=== PATIENT | female | born 1975 | race Caucasian/White ===

== ENCOUNTER → 2020-03-06 11:17 | Outpatient (CLI) | payer OTHER, SELFPAY ==
--- NOTE | ~2020-03-06 | MM_ITS ---
EXAMINATION: MM screening krystal BI w cherie HISTORY: Screening mammogram TECHNIQUE: Craniocaudal and mediolateral oblique 3-D tomosynthesis images were obtained and synthetic 2-D images were generated. CAD analysis was submitted and interpreted. COMPARISON: 02/27/2019 bilateral digital screening mammogram 03/15/2019 limited left breast ultrasound BREAST PARENCHYMAL COMPOSITION: The breasts are heterogeneously dense, which may obscure small masses . FINDINGS: There is no evidence of suspicious mass, calcification, or architectural distortion to sugg est malignancy in either breast. There has been no suspicious interval change. IMPRESSION: 1. No mammographic evidence of malignancy. 2. Recommend routine screening mammography in one year. BI-RADS Category 1: Negative Reviewed, dictated and finalized at location A.
== END ==
PROVIDERS: PCP Family Medicine; Visit Provider Family Medicine
DX: Z12.31 Encounter for screening mammogram for malignant neoplasm of breast (principal)
CPT/HCPCS: 77063; 77067

== ENCOUNTER → 2021-03-09 11:03 | Outpatient (CLI) | payer OTHER, SELFPAY ==
--- NOTE | ~2021-03-09 | MM_ITS ---
EXAMINATION: MM screening krystal BI w cherie HISTORY: Screening mammogram TECHNIQUE: Craniocaudal and mediolateral oblique 3-D tomosynthesis images were obtained and synthetic 2-D images were generated. CAD analysis was submitted and interpreted. COMPARISON: 03/06/2020 bilateral digital screening mammogram 03/15/2019 limited left breast ultrasound 02/27/2019 bilateral digital screening mammogram BREAST PARENCHYMAL COMPOSITION: The breasts are heterogeneously dense, which may obscure small masses . FINDINGS: There is no evidence of suspicious mass, calcification, or architectural distortion to sugg est malignancy in either breast. There has been no suspicious interval change. IMPRESSION: 1. No mammographic evidence of malignancy. 2. Recommend routine screening mammography in one year. BI-RADS Category 1: Negative Reviewed, dictated and finalized at location A.
== END ==
PROVIDERS: PCP Family Medicine; Visit Provider Family Medicine
DX: Z12.31 Encounter for screening mammogram for malignant neoplasm of breast (principal)
CPT/HCPCS: 77063; 77067

== ENCOUNTER 2022-02-07 14:45 | Outpatient (RCR) | payer OTHER, SELFPAY ==
[2022-02-07] MEDS: ACETAMINOPHEN 325 MG TABLET 650 MG PO (15:12)
[2022-02-07] MEDS: diphenhydrAMINE HCl CAP 25 MG CAPSULE PO (15:12)
[2022-02-07] MEDS: FAMOTIDINE 20 MG TABLET PO (15:12)
[2022-02-07 15:18] VITALS: BP 116/71; PULSE 86; RESP 20; TEMP 36.6; O2SAT 97
[2022-02-07] MEDS: BEBTELOVIMAB 175 MG/2 ML VIAL IV PUSH (15:32)
[2022-02-07 16:09] VITALS: BP 112/76; PULSE 84; O2SAT 98
== END 2022-02-07 16:00 ==
LOC: AMCINF 14:45
PROVIDERS: Referring Provider Family Medicine; Visit Provider Internal Medicine Hematology & Oncology
DX: U07.1 COVID-19 (principal); I10 Essential (primary) hypertension
CPT/HCPCS: A9270; M0222; Q0222

== ENCOUNTER → 2022-03-14 11:27 | Outpatient (CLI) | payer OTHER, SELFPAY ==
--- NOTE | ~2022-03-14 | MM_ITS ---
EXAMINATION: MM screening krystal BI w cherie HISTORY: Screening TECHNIQUE: Craniocaudal and mediolateral oblique 3-D tomosynthesis images were obtained and synthetic 2-D images were generated. CAD analysis was submitted and interpreted. COMPARISON: Comparison to multiple prior studies sequentially, with oldest reviewed study dated 03/03. BREAST PARENCHYMAL COMPOSITION: The breasts are heterogeneously dense, which may obscure small masses . FINDINGS: There is no evidence of suspicious mass, calcification, or architectural distortion to sugg est malignancy in either breast. There has been no suspicious interval change. IMPRESSION: 1. No mammographic evidence of malignancy. 2. Recommend routine screening mammography in one year. BI-RADS Category 1: Negative Reviewed, dictated and finalized at location A.
== END ==
PROVIDERS: PCP Family Medicine; Visit Provider Family Medicine
DX: Z12.31 Encounter for screening mammogram for malignant neoplasm of breast (principal)
CPT/HCPCS: 77063; 77067

== ENCOUNTER 2022-04-04 13:43 | Outpatient (CLI) | payer OTHER, SELFPAY ==
[2022-04-07 16:05] LABS: Prolactin 7.9 ng/mL (***)
== END 2022-04-04 13:44 | disposition home or self-care (01) ==
LOC: ANHGOSHLAB 13:47
PROVIDERS: PCP Family Medicine; Visit Provider Family Medicine
DX: E22.1 Hyperprolactinemia (principal)
CPT/HCPCS: 36415; 84146

== ENCOUNTER → 2023-07-10 15:24 | Outpatient (CLI) | payer OTHER, SELFPAY ==
--- NOTE | ~2023-07-10 | MM_ITS ---
EXAMINATION: MM screening krystal BI w cherie HISTORY: Screening mammogram TECHNIQUE: Craniocaudal and mediolateral oblique 3-D tomosynthesis images were obtained and synthetic 2-D images were generated. Bilateral rotated lateral CC views. CAD analysis was submitted and interp reted. COMPARISON: 03/2022, 03/09/2021, 03/06/2020 bilateral screening mammogram examinations BREAST PARENCHYMAL COMPOSITION: The breasts are heterogeneously dense, which may obscure small masses . FINDINGS: There is an approximately 1.6 x 1.9 cm oval low-density circumscribed opacity with halo sig n situated anteriorly in the mid to lower outer left breast. This has benign mammographic features, l ikely a benign cyst. This is only slightly increased in size compared to 03/2022. There is no evidence of suspicious mass, calcification, or architectural distortion to suggest malign fer in either breast. There has been no suspicious interval change. IMPRESSION: 1. Benign left breast probable cyst No mammographic evidence of malignancy. 2. Recommend routine screening mammography in one year. BI-RADS Category 2: Benign finding(s). Reviewed, dictated and finalized at location A. 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
== END ==
PROVIDERS: PCP Family Medicine; Visit Provider Family Medicine
DX: Z12.31 Encounter for screening mammogram for malignant neoplasm of breast (principal)
CPT/HCPCS: 77063; 77067

== ENCOUNTER 2023-12-23 09:16 | Outpatient (CLI) | payer OTHER, SELFPAY ==
--- NOTE | ~2023-12-23 | US_ITS ---
EXAMINATION: US arterial ankle brachial ind DATE: 12/23/2023 10:24 INDICATION: Raynaud's syndrome without gangrene TECHNIQUE: Segmental pressures and plethysmographic and Doppler waveforms of the brachial and lower e xtremity arteries were obtained. COMPARISON: None. FINDINGS: Right and left brachial artery pressures of 107 mm Hg and 102 mm Hg, respectively, are concordant (no rmal difference <= 30 mmHg). The right ankle-brachial index (WILLIAMS) is 1.21 (normal >= 0.9-1.0). The right great toe-brachial index (TBI) is 0.84 (normal >= 0.65). Arterial Doppler waveforms are triphasic at the right posterior tibia l and biphasic at the right dorsalis pedis arteries, both with brisk systolic upstrokes. The left WILLIAMS is 1.26. The left TBI is 0.73. Arterial Doppler waveforms are biphasic with brisk systol ic upstrokes at both left posterior tibial and dorsalis pedis arteries. IMPRESSION: 1. No significant arterial occlusive disease with normal bilateral ABIs and TBI's. Reviewed, dictated and finalized at location B. IMPRESSION: 1. No significant arterial occlusive disease with normal bilateral ABIs and TBI 's.
== END 2023-12-23 09:17 | disposition home or self-care (01) ==
LOC: ANHIMG 09:19
PROVIDERS: PCP Family Medicine; Visit Provider Family Medicine
DX: I73.00 Raynaud's syndrome without gangrene (principal)
CPT/HCPCS: 93922

== ENCOUNTER 2024-06-28 07:56 | Outpatient (CLI) | payer OTHER, SELFPAY ==
--- NOTE | ~2024-06-28 | MMUS_ITS ---
EXAMINATION: MM diagnostic krystal BI w cherie, US breast LT limited HISTORY: Left palpable area TECHNIQUE: 3-D tomosynthesis images of the breasts were performed and synthetic 2-D images were gener ated. CAD analysis was submitted and interpreted. High resolution limited left breast ultrasound was performed. COMPARISON: 07/10/2023, 03/14/2022, 03/09/2021 BREAST PARENCHYMAL COMPOSITION:Not Dense. There are scattered areas of fibroglandular density. FINDINGS: MAMMOGRAPHIC FINDINGS: Parenchymal pattern of the breasts is unchanged. No suspicious mass lesion or distortion seen in eith er breast. No suspicious microcalcification. ULTRASOUND: At the 2:00 left subareolar region, there is a 1.0 x 0.9 x 1.0 cm anechoic circumscribed simple cyst, with posterior through transmission. IMPRESSION: No evidence for malignancy. 1.0 cm simple left breast cyst, as detailed above, benign. BI-RADS Category 2: Benign finding(s). Reviewed, dictated and finalized at location . 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 1.0 cm simple left breast cyst, as detailed above, benign. BI-RADS Category 2: Benign finding(s).
== END 2024-06-28 07:57 | disposition home or self-care (01) ==
LOC: MICIMG 07:57
PROVIDERS: PCP Family Medicine; Visit Provider Nurse Practitioner Family
DX: N60.02 Solitary cyst of left breast (principal)
CPT/HCPCS: 76642; 77062; 77066; G0279

== ENCOUNTER 2024-09-15 01:54 | Day surgery (SDC) | payer OTHER, SELFPAY ==
[2024-09-01 15:35] VITALS: BMI 24.3
[2024-09-15 09:21] VITALS: BP 101/63; PULSE 91; RESP 18; TEMP 36.6; O2SAT 100; BMI 24.6
[2024-09-15] MEDS: LACTATED RINGERS 1,000 ML 150 ML IV CONT (09:39)
--- NOTE | 2024-09-15 10:18 | P.PNAN_ITS ---
Anes - Initial Pre Proc Eval Procedure: Operation Date: 09/15/24 10:30 Proposed Procedures p Screening Colonoscopy - Martin Leos MD Date/Time: 09/15/24 10:18 Surgeon: Martin Leos MD Pre Op Diagnosis: screening malignant neoplasm colon Patient Data Age: 48 Gender: F Height: 1.73 m Weight: 73.6 kg Last Vital Signs Temp 36.6 C 09/15/24 09:21 Pulse 91 09/15/24 09:21 Resp 18 09/15/24 09:21 BP 101/63 09/15/24 09:21 Pulse Ox 100 09/15/24 09:21 O2 Del Method Room Air 09/15/24 09:21 Allergies Allergy/AdvReac Type Severity Reaction Status Date / Time amlodipine Allergy Unknown Nausea Verified 09/15/24 09:19 alprazolam (From Xanax) AdvReac Severe sedation Verified 09/15/24 09:19 sertraline AdvReac Severe insomnia Verified 09/15/24 09:19 Home Medications ?Medication ?Instructions ?Recorded ?Confirmed ?Type famotidine 20 mg tablet 20 mg PO BID #90 tabs 08/06/22 09/15/24 Rx desogestrel-e.estradiol 0.15 See Rx Instructions .Route 04/20/24 09/15/24 Rx mg-0.02 mg(21)/e.estrad 0.01 mg(5) .COMPLEX #84 tabs tablet (Volnea (28)) levothyroxine 50 mcg tablet See Rx Instructions .Route 04/20/24 09/15/24 Rx .COMPLEX #90 tabs lisinopril 20 mg tablet See Rx Instructions .Route 04/20/24 09/15/24 Rx .COMPLEX #90 tabs paroxetine HCl 12.5 mg 12.5 mg PO QAM #90 tabs 04/20/24 09/15/24 Rx tablet,extended release 24 hr spironolactone 50 mg tablet 50 mg PO QAM #90 tabs 04/20/24 09/15/24 Rx Patient hx anesthesia problems: none Family hx anesthesia problems: none Results Review: All pre-operative results and documents have been reviewed as part of the pre- operative evaluation. [facility] Past Medical History Medical History COVID-19 Ganglion cyst Accessory nipple in female Hallux valgus (acquired), left foot Palpitations with regular cardiac rhythm Hyperprolactinemia Mastodynia Other spondylosis, lumbar region Patellofemoral disorder of both knees Tension headache Family History Family History Grandparent Diabetes mellitus Cerebrovascular accident Mother Hypertension Carcinoma of colon Other Family history of arthritis Family history of hypercholesterolemia Social History Social History Smoking status: Never smoker Alcohol intake: current Alcohol use details: occasionally Substance use: never Substance use type: does not use Do You Feel Safe in your Home?: Yes Lack of Transportation: No Lack of Food: Never True Current Housing: I Have Housing Concerned About Future Housing: No Difficulty Paying Gas/Electric Bills: No Difficulty Paying for Meds: No Currently Unemployed: No Education: Master's Degree or Higher Difficulty w/ Childcare or Family Care: No Living arrangements: with family Anes - [place] Final PreProcedure Day of Procedure 09/15/24 10:18 Patient weight: normal Heart: regular rate and rhythm Lungs: clear to auscultation Airway: Mallampati scale class II Neurological: alert and oriented Last oral intake: >/= 8 hours ASA classification: III Emergent: no Anesthetic plan: proceed Anesthesia type and monitoring: general GIVS and standard monitoring Results Review: All pre-operative results and documents have been reviewed as part of the pre- operative evaluation. Informed Consent: The patient's anesthetic plan and its attendant risks and benefits were discussed with the patient/family/POA. Questions were solicited and answers provided to the satisfaction of the patient/family/POA.
--- NOTE | 2024-09-15 10:26 | PM.HPGS ---
History of Present Illness History of Present Illness Consent: Risks, benefits, and alternatives have been discussed and questions answered. Patient agrees to proceed with procedure. Chief complaint: screening malignant neoplasm colon Narrative: Amira James is a 48 year old female here for first screening colonoscopy Review of Systems Review of Systems: All systems reviewed & are unremarkable except as noted in HPI and below PMFSH Past Medical History Medical History (Updated 09/15/24 @ 10:26 by Martin Leos MD) Colon cancer screening COVID-19 Ganglion cyst Accessory nipple in female Hallux valgus (acquired), left foot Palpitations with regular cardiac rhythm Hyperprolactinemia Mastodynia Other spondylosis, lumbar region Patellofemoral disorder of both knees Tension headache Family History Family History Grandparent Diabetes mellitus Cerebrovascular accident Mother Hypertension Carcinoma of colon Other Family history of arthritis Family history of hypercholesterolemia Social History Social History Smoking status: Never smoker Alcohol intake: current Alcohol use details: occasionally Substance use: never Substance use type: does not use Do You Feel Safe in your Home?: Yes Lack of Transportation: No Lack of Food: Never True Current Housing: I Have Housing Concerned About Future Housing: No Difficulty Paying Gas/Electric Bills: No Difficulty Paying for Meds: No Currently Unemployed: No Education: Master's Degree or Higher Difficulty w/ Childcare or Family Care: No Living arrangements: with family Meds Home Medications and Allergies Home Medications ?Medication ?Instructions ?Recorded ?Confirmed ?Type famotidine 20 mg tablet 20 mg PO BID #90 tabs 08/06/22 09/15/24 Rx desogestrel-e.estradiol 0.15 See Rx Instructions .Route 04/20/24 09/15/24 Rx mg-0.02 mg(21)/e.estrad 0.01 mg(5) .COMPLEX #84 tabs tablet (Volnea (28)) levothyroxine 50 mcg tablet See Rx Instructions .Route 04/20/24 09/15/24 Rx .COMPLEX #90 tabs lisinopril 20 mg tablet See Rx Instructions .Route 04/20/24 09/15/24 Rx .COMPLEX #90 tabs paroxetine HCl 12.5 mg 12.5 mg PO QAM #90 tabs 04/20/24 09/15/24 Rx tablet,extended release 24 hr spironolactone 50 mg tablet 50 mg PO QAM #90 tabs 04/20/24 09/15/24 Rx Allergies Allergy/AdvReac Type Severity Reaction Status Date / Time amlodipine Allergy Unknown Nausea Verified 09/15/24 09:19 alprazolam (From Xanax) AdvReac Severe sedation Verified 09/15/24 09:19 sertraline AdvReac Severe insomnia Verified 09/15/24 09:19 Vital Signs Vital Signs - 24 hr 09/15/24 09:21 Temperature 97.9 F Pulse Rate 91 Respiratory Rate 18 Blood Pressure 101/63 Pulse Oximetry 100 Oxygen Delivery Room Air Exam Const: General: comfortable and no acute distress HENMT: Face/Nose/Sinus: Normal nares present Eyes: General: appearance normal, both eyes and all related structures Neck: Neck: no JVD Resp: Auscultation: clear to auscultation bilaterally Cardio: Rate: regular rate Rhythm: regular rhythm GI: Inspection: non-distended GI Palp: Yes Soft to palpation Skin: General skin exam: normal color Neuro: General: gait normal Speech: normal speech Extrem: General: normal to inspection Psych: Mental Status: mental status grossly normal Assessment and Plan Assessment and plan (1) Colon cancer screening: Code(s): Z12.11 - Encounter for screening for malignant neoplasm of colon Status: Acute Assessment and Plan: colonoscopy
[2024-09-15 10:38] VITALS: BP 109/67; PULSE 77; RESP 18; O2SAT 100
[2024-09-15 10:38] LABS: BEDSIDEPREGUCG Negative (Negative)
[2024-09-15 10:48] VITALS: BP 101/60; PULSE 77; RESP 18; O2SAT 100
[2024-09-15 10:58] VITALS: BP 120/70; PULSE 67; RESP 16; O2SAT 100
== END 2024-09-15 11:10 | disposition home or self-care (01) ==
PROVIDERS: PCP Family Medicine; Referring Provider Family Medicine; Visit Provider Internal Medicine Gastroenterology
PROC: 0DJD8ZZ Inspection of Lower Intestinal Tract, Via Natural or Artificial Opening Endoscopic (ICD-10-PCS; CPT 45378; principal; 2024-09-15 10:30)
DX: Z12.11 Encounter for screening for malignant neoplasm of colon (principal); K64.8 Other hemorrhoids; K57.30 Diverticulosis of large intestine without perforation or abscess without bleeding; E22.1 Hyperprolactinemia; M20.12 Hallux valgus (acquired), left foot; R00.2 Palpitations; M47.896 Other spondylosis, lumbar region; Z80.0 Family history of malignant neoplasm of digestive organs; Z82.49 Family history of ischemic heart disease and other diseases of the circulatory system
CPT/HCPCS: 45378; J2003; J2704; J7120

== ENCOUNTER 2025-06-30 12:25 | Outpatient (CLI) | payer OTHER, SELFPAY ==
--- NOTE | ~2025-06-30 | MM_ITS ---
EXAMINATION: MM screening krystal BI w cherie HISTORY: Screening TECHNIQUE: Craniocaudal and mediolateral oblique 3-D tomosynthesis images were obtained and synthetic 2-D images were generated. CAD analysis was submitted and interpreted. COMPARISON: Comparison to multiple prior studies sequentially, with oldest reviewed study dated , 03/03/2019 BREAST PARENCHYMAL COMPOSITION: Dense: The breasts are heterogeneously dense, which may obscure small masses. FINDINGS: There is no evidence of suspicious mass, calcification, or architectural distortion to suggest malignancy in either breast. IMPRESSION: 1. No mammographic evidence of malignancy. 2. Recommend routine screening mammography in one year. BI-RADS Category 1: Negative Reviewed, dictated and finalized at location B. 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
== END 2025-06-30 12:26 | disposition home or self-care (01) ==
LOC: MICIMG 12:26
PROVIDERS: PCP Family Medicine; Visit Provider Family Medicine
DX: Z12.31 Encounter for screening mammogram for malignant neoplasm of breast (principal)
CPT/HCPCS: 77063; 77067